=== PATIENT | female | born 1990 | race Two or more races ===

== ENCOUNTER 2024-08-17 09:02 | Emergency (ER) | payer MEDICAID, SELFPAY ==
[2024-08-17 09:11] VITALS: BP 124/85; PULSE 97; RESP 16; TEMP 36.8; O2SAT 100; BMI 33.3
--- NOTE | 2024-08-17 09:28 | XR_ITS ---
Examination: CT abdomen and pelvis without contrast. Coronal 3-D reconstructions. Sagittal 2-D reconstructions. Date and time of exam:August 17, 2024 1125 hrs. Indications: Onset lower abdominal pain and constipation beginning last night CTDI: vol (mGy): 10.8 DLP: (mGycm): 643 Technique: Axial images of the abdomen have been obtained, 3 mm slice thickness Intravenous contrast material has not been administered. Low dose protocols were performed. One or more of the following dose reduction techniques were used; automated exposure control, adjustment of the mA and/or KV according to patient size, use of iterative reconstruction technique. Findings: No focal liver lesions Absent gallbladder Spleen not enlarged No pancreatic or adrenal mass No renal or ureteral calculi, no hydronephrosis Aorta normal size Normal appendix No bowel obstruction No obstruction Negative for diverticulitis No pelvic mass Contracted urinary bladder Mild osteopenia Impression: No renal or ureteral calculi, no hydronephrosis Normal appendix No bowel obstruction diverticulitis or free air
--- NOTE | 2024-08-17 09:30 | EDNOTE_ITS ---
ED Abdominal Pain RME/HPI General Chief Complaint: Abdominal Pain Stated complaint: LOWER ABD PAIN SINCE LAST NIGHT Time seen by provider: 08/17/24 09:05 Arrival date/time: 08/17/24 09:02 Source: patient Mode of arrival: ambulatory Limitations: no limitations RME / HPI RME / HPI narrative: 34-year-old female with no reported past medical history presents for evaluation of lower abdominal pain x 2 days. She describes it as sharp, diffuse lower abdomen with no radiation of pain. She reports low volume, hard stool yesterday and notes constipation x 3 days prior to that. She endorses nausea without emesis. She denies fever, chills, dysuria, hematuria, hematochezia, hematemesis, vaginal discharge, chest pain, shortness of breath. She reports past surgical history of cholecystectomy, x 3 and notes tubal ligation x 4 years ago. LNMP x 4 weeks ago. MD complaint: abdominal pain Onset (ago): day(s) Consistency: intermittent Location: diffuse and suprapubic Severity: moderate Quality: sharp Migration to: no migration Relieving factors: nothing Exacerbating factors: nothing Associated symptoms: nausea Related Data LMP (females 10-50): 1 month Previous Rx's ?Medication ?Instructions ?Recorded cyclobenzaprine 10 mg tablet 10 mg PO TID PRN muscle spasm #20 03/24/22 tabs ibuprofen 800 mg tablet 800 mg PO Q8H PRN pain #30 tabs 03/24/22 acetaminophen 500 mg tablet 500 mg PO Q6H PRN pain #30 tabs 09/30/23 (Tylenol Extra Strength) ondansetron 4 mg disintegrating 4 mg PO Q6H PRN nausea and 09/30/23 tablet vomiting #10 tabs ondansetron 4 mg disintegrating 4 mg PO Q8H #30 tabs 03/26/24 tablet ibuprofen 600 mg tablet 600 mg PO Q6H #30 tabs 06/02/24 Allergies Allergy/AdvReac Type Severity Reaction Status Date / Time hydrocodone Allergy Severe LIPS SWELL Verified 06/02/24 10:29 UP Iodinated Contrast Media Allergy Severe Swelling Verified 06/02/24 10:29 [Iodinated Contrast- Oral of and IV Dye] Lip/Tongue/Throat Review of Systems Constitutional Constitutional: Denies excessive sweating, Denies fatigue, Denies fever(s), Denies headache(s), Denies poor appetite and Denies lethargy ENT Ears, Nose, Mouth, and Throat: Denies dizziness, Denies headache(s) and Denies neck pain Cardiovascular Cardiovascular: Denies chest pain, Denies dyspnea and Denies leg edema Respiratory Respiratory: Denies cough and Denies dyspnea Gastrointestinal Gastrointestinal: Reports abdominal pain, Reports bloating, Reports change in bowel habits, Reports change in stool character, Reports constipation, Denies excessive flatus, Denies hematemesis, Denies hematochezia, Denies melena, Reports nausea and Denies vomiting Genitourinary Genitourinary: Denies dysuria Musculoskeletal Musculoskeletal: Denies back pain and Denies neck pain Integumentary/Breasts Skin/Breast: Denies rash Neurologic Neurologic: Denies dizziness and Denies headache(s) Endocrine Endocrine: Denies excessive sweating and Denies fatigue Past Medical History Past Medical History NEUROLOGIC: Negative Neurological Disorders or Seizures CARDIAC: Negative Cardiac Disorders or Congestive Heart Failure RESPIRATORY: Negative Chronic Obstructive Pulmonary Disease (COPD) or Asthma GASTROINTESTINAL: Positive Gastrointestinal Disorders and Gastroesophageal Reflux Disease GENITOURINARY: Negative Genitourinary Disorders or Renal Disease REPRODUCTIVE: Positive Previous Pregnancies MUSCULOSKELETAL: Negative Musculoskeletal Disorders ENDOCRINE: Negative Endocrine Disorders, Diabetes Mellitus Type 1 or Diabetes Mellitus Type 2 HEMATOLOGIC: Positive Anemia; Negative Blood Disorders or Sickle Cell Disease OTHER HISTORY: Negative Blood Transfusions, Blood Transfusion Reaction or Anesthesia Reactions Family History FAMILY HISTORY: Positive Family Cardiac Disorders, Family Gastrointestinal Problems, Family Cancer and Family Surgery Surgical History SURGICAL: Positive Section Social History SMOKING STATUS: Never smoker SECOND HAND EXPOSURE: No SUBSTANCE USE: does not use ED Exam General Limitations: Present no limitations General appearance: Present alert and in no apparent distress Head Head exam: Present atraumatic and normocephalic Eye Eye exam: Present normal appearance and EOMI ENT ENT exam: Present mucous membranes moist Neck Neck exam: Present normal inspection and full ROM Chest Chest inspection: Present normal inspection and symmetric chest wall rise Respiratory Respiratory exam: Present normal lung sounds bilaterally; Absent respiratory distress Cardiovascular Cardiovascular exam: Present regular rate and +S1 Abdominal Exam Abdominal exam: Present soft and normal bowel sounds; Absent distention, tenderness, guarding, rebound, rigidity, hypoactive bowel sounds or ascites Rectal Exam Rectal exam: Present deferred Extremities Exam Extremities exam: Present normal inspection and full ROM Back Exam Back exam: Present normal inspection and full ROM Neurological Exam Neurological exam: Present alert and normal gait Psychiatric Psychiatric exam: Present normal affect Skin Skin exam: Present warm, dry and normal color Course Quality Measures none Orders Category Date Time Status CT abdomen pelvis wo con Stat Exams 08/17/24 09:28 Completed CBC Stat Lab 08/17/24 09:45 Completed CMP [Comprehensive Metabolic Panel] Stat Lab 08/17/24 09:45 Completed HCG Qualitative,Urine Stat Lab 08/17/24 10:11 Completed Lipase Stat Lab 08/17/24 09:45 Completed Path Review Blood Smear Stat Lab 08/17/24 09:45 Completed UA [Urinalysis] Stat Lab 08/17/24 10:11 Completed Acetaminophen Tab [Tylenol Tab] Med 08/17/24 09:28 Discontinued 325 mg PO X1 ONE Ondansetron Odt [Zofran Odt] Med 08/17/24 09:28 Discontinued 4 mg PO X1 ONE Vital Signs Vital signs: Vital Signs Temperature 98.3 F 08/17/24 09:11 Pulse Rate 97 08/17/24 09:11 Respiratory Rate 16 08/17/24 09:11 Blood Pressure 124/85 H 08/17/24 09:11 Pulse Oximetry (%) 100 08/17/24 09:11 Oxygen Delivery Method Room Air 08/17/24 09:11 Socks 100% on room air, within normal limits. Abdominal Pain MDM MDM Narrative MDM Narrative:: 34-year-old female presented with abdominal pain and constipation. Vital signs reassuring. Patient nontoxic-appearing with unremarkable abdominal exam. CT abdomen reassuring given no evidence of obstruction and no free air. No gross electrolyte abnormalities or evidence of endorgan damage on metabolic panel. CBC did show anemia, for which I discussed with the patient starting a multivitamin at home given iron pill may exacerbate her recent constipation. Patient denied blood in stool and melena, therefore rectal exam was deferred. Patient's pain was improved in the department following Tylenol. I advised her to hydrate well and follow-up with primary care in the next 2 to 3 days for reevaluation. Patient was agreeable with this plan and given the opportunity to ask questions. Patient was stable at time of discharge. Patient data External records reviewed:: [facility] previous records Clinical information provided by:: patient Social determinants that could affect healthcare access:: none Patient has the following chronic illnesses:: None reported. How is presenting disease/condition affected by chronic disease/condition?: no chronic disease Evaluation data The following diagnostics were reviewed and interpreted by me:: lab results and radiology exam(s) Lab and/or radiology exams considered but not ordered:: Considered not ordered. Interpretation Summary: CT without evidence of bowel obstruction or free air. No organomegaly. No gross electrolyte abnormalities on metabolic panel. CBC significant for mild anemia. Medications / Prescriptions Medications or Prescriptions considered but not ordered:: Rx given. Medication administrations:: Medication Administration History Discontinued Medications Acetaminophen (Acetaminophen 325 Mg Tablet) 325 mg PO X1 ONE Stop: 08/17/24 09:29 Last Admin: 08/17/24 09:49 Dose: 325 mg Documented By: DO Ondansetron HCl (Ondansetron Odt 4 Mg Tabrap) 4 mg PO X1 ONE; Protocol Stop: 08/17/24 09:29 Last Admin: 08/17/24 09:49 Dose: 4 mg Documented By: DO Rx given. Consultations Consultation(s) initiated? (list below): No Diagnosis Differential diagnosis abdominal pain: abdominal pain, acute appendicitis, constipation, diverticulitis, gastroenteritis and small bowel obstruction Most likely diagnosis given after review of the tests above:: Abdominal pain, anemia. Admission Indicated Admission indicated?: not indicated Admission Request Was there a request for admission?: No Disposition Plan Disposition Plan: Discharge Discharge Attestation Discharge Attestation: The patient and all family members were given an opportunity to ask questions and understood the discharge instructions. Discharge instructions specifically effects, indications for sooner follow up or return to the emergency department, and the expected course of current diagnosis. Patient condition: Stable Discharge Plan Plan Patient Disposition: HOME (Self Care) Disposition Comment: stable Prescriptions/Referrals Prescriptions/Med Rec: No Action ibuprofen 800 mg tablet 800 mg PO Q8H PRN (Reason: pain) Qty: 30 0RF cyclobenzaprine 10 mg tablet 10 mg PO TID PRN (Reason: muscle spasm) Qty: 20 0RF acetaminophen [Tylenol Extra Strength] 500 mg tablet 500 mg PO Q6H PRN (Reason: pain) Qty: 30 0RF ondansetron 4 mg tablet,disintegrating 4 mg PO Q6H PRN (Reason: nausea and vomiting) Qty: 10 0RF ondansetron 4 mg tablet,disintegrating 4 mg PO Q8H Qty: 30 0RF ibuprofen 600 mg tablet 600 mg PO Q6H Qty: 30 0RF Referrals: Vick Piña MD [Primary Care Provider] - In 1 week Problem List Clinical Impression: Anemia, Hematuria, Suprapubic pain Patient/Caregiver Discharge Instructions Other Activity Instructions:: Follow-up with primary care in the next 24 to 48 hours for reevaluation. Consider taking multivitamin as discussed given recent constipation do not want to start on iron pills today. Return to the ED if your symptoms worsen or change. 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 Jones
[2024-08-17] MEDS: ACETAMINOPHEN 325 MG TABLET PO (09:49)
[2024-08-17] MEDS: ONDANSETRON ODT 4 MG TABRAP PO (09:49)
[2024-08-17 10:04] LABS: Basophils # (Auto) 0.1 Thou/mm3 (0.0-0.2); Basophils % (Auto) 1 % (0-2.5); Eosinophils # (Auto) 0.1 Thou/mm3 (0.0-0.5); Eosinophils % (Auto) 1 % (0-10); Hematocrit 32.9 % (36.0-46.0); Immature Granulocytes % (Auto) 0 % (0-0); Immature Granulocytes Auto 0.02 Thou/mm3 (0.00-0.00); Lymphocytes # (Auto) 1.6 Thou/mm3 (1.0-4.8); Lymphocytes % (Auto) 24 % (10-50); Mean Corpuscular HGB Conc 30.4 g/dl (31.0-37.0); Mean Corpuscular Hemoglobin 20.8 pg (25.0-35.0); Mean Corpuscular Volume 69 fL (80-100); Monocytes # (Auto) 0.5 Thou/mm3 (0.0-0.8); Monocytes % (Auto) 8 % (0-12); Neutrophils # (Auto) 4.5 Thou/mm3 (1.8-7.7); Neutrophils % (Auto) 67 % (37-80); Nucleated Red Blood Cell % 0 /100 WBC (0); Platelet Count 390 Thou/mm3 (140-440); RDW Standard Deviation 47.2 fL (36.4-46.3); White Blood Count 6.7 Thou/mm3 (3.6-11.0)
[2024-08-17 10:23] LABS: Albumin, Serum 4.8 gm/dL (3.5-5.0); Albumin/Globulin Ratio 1.7 (1.2-2.2); Alkaline Phosphatase 104 U/L (46-116); Anion Gap 7 (7-16); Aspartate Amino Transferase 12 U/L (0-34); BUN/Creatinine Ratio 16 Ratio (12-20); Bilirubin,Total 0.4 mg/dL (0.3-1.2); Blood Urea Nitrogen 11 mg/dL (9-23); Calcium 9.5 mg/dL (8.3-10.6); Calcium (Corrected) 9.5 mg/dL (8.5-10.1); Carbon Dioxide 25.9 mMol/L (20.0-31.0); Chloride 105 mMol/L (98-107); Creatinine (Component) 0.7 mg/dL (0.6-1.3); Estimated Creatinine Clearance 133.9 mL/min (>60); Globulin 2.9 gm/dL (2.3-3.5); Glucose 95 mg/dL (74-106); Lipase 46 U/L (12-53); Osmolality,Calculated 275 (275-295); Potassium 3.4 mMol/L (3.4-5.1); Sodium 138 mMol/L (136-145); Total Protein 7.7 gm/dL (5.7-8.2); eGFR > 60 See Note
[2024-08-17 10:26] LABS: Collection Type, Urine Clean Catch
[2024-08-17 10:31] LABS: Alanine Aminotransferase 11 U/L (10-49)
[2024-08-17 10:42] LABS: HCG Qualitative,Urine Negative
[2024-08-17 10:51] LABS: Bacteria,Urine Rare; Bilirubin,Urine Negative (Negative); Blood,Urine 2+ (Negative); Clarity,Urine Clear (Clear/Hazy); Color,Urine Yellow (Lt Yel-Yel); Glucose, Urine Negative (Negative); Ketones,Urine Negative (Negative); Leukocyte Esterase,Urine Negative (Negative); Nitrite,Urine Negative (Negative); Protein,Urine Trace (Neg - Trace); RBC,Urine 4 /hpf (0-3); Specific Gravity,Urine 1.028 (1.001-1.035); Squamous Epithelial Cell,Urine 6 /hpf (0-5); Urobilinogen,Urine Negative mg/dL (0.0-1.0); WBC,Urine 2 /hpf (0-5)
--- NOTE | 2024-08-17 13:49 | PRELIM_ITS ---
CT scan of the abdomen and pelvis without intravenous contrast (axial sections with sagittal and laura nal reformats) August 17, 2024 1125 hours Clinical History: lower abd pain and constipation x3 days Reference is made to the prior report dated March 09, 2021. Findings:The lung bases are clear. A smal l hiatal hernia is present. Gallbladder is surgically absent.The liver, pancreas, spleen, kidneys and adrenals are unremarkable on this noncontrast study.No evidence of bowel obstruction. The appendix i s within normal limits (coronal images 94-113/ 198). There is no mesenteric or retroperitoneal adenop athy.The urinary bladder is incompletely distended at the time of the examination and appears mildly thick walled. The uterus is retroverted. There are small bilateral ovarian follicles. There is no [place] e fluid or free air.The osseous structures are unremarkable.Impression:No evidence of bowel obstructi on, free air or fluid collection on this noncontrast study. Other findings as described above. Repor t Electronically Signed By: Chip Agee 08/17/2024 1:48:45 PM [EST]
[2024-08-17 13:51] LABS: Path Review Blood Smear Sent to Pathologist
[2024-08-17 15:06] VITALS: BP 124/70; PULSE 80; RESP 18; TEMP 37; O2SAT 100
== END 2024-08-17 15:08 | disposition home or self-care (01) ==
PROVIDERS: Physician Assistant; Emergency Provider Emergency Medicine; PCP Family Medicine
DX: D64.9 Anemia, unspecified (principal); R10.2 Pelvic and perineal pain; R31.9 Hematuria, unspecified
CPT/HCPCS: 36415; 74176; 80053; 81001; 81025; 83690; 85025; 99284; Q0162; A9270